=== PATIENT | female | born 1990 | race Caucasian/White ===

== ENCOUNTER → 2023-09-07 15:52 | Outpatient (REF) | payer OTHER, SELFPAY | LOC: PNTC 15:52 | PROVIDERS: ATTENDING PHYSICIAN Obstetrics & Gynecology | DX: Z87.59 Personal history of other complications of pregnancy, childbirth and the puerperium (principal) | CPT/HCPCS: 76816; 93976 ==

== ENCOUNTER → 2023-09-21 15:00 | Outpatient (REF) | payer OTHER, SELFPAY | LOC: PNTC 15:00 | PROVIDERS: ATTENDING PHYSICIAN Obstetrics & Gynecology | DX: Z36.82 Encounter for antenatal screening for nuchal translucency (principal) | CPT/HCPCS: 59025; 76816; 76820 ==

== ENCOUNTER → 2023-09-28 14:32 | Outpatient (REF) | payer OTHER, SELFPAY | LOC: PNTC 14:32 | PROVIDERS: ATTENDING PHYSICIAN Obstetrics & Gynecology | DX: O88.119 Amniotic fluid embolism in pregnancy, unspecified trimester (principal) | CPT/HCPCS: 59025; 76815; 76820 ==

== ENCOUNTER → 2023-10-05 15:06 | Outpatient (REF) | payer OTHER, SELFPAY | LOC: PNTC 15:06 | PROVIDERS: ATTENDING PHYSICIAN Obstetrics & Gynecology | DX: O36.5990 Maternal care for other known or suspected poor fetal growth, unspecified trimester, not applicable or unspecified (principal) | CPT/HCPCS: 59025; 76815; 76820 ==

== ENCOUNTER → 2023-10-12 10:54 | Outpatient (REF) | payer OTHER, SELFPAY | LOC: PNTC 10:54 | PROVIDERS: ATTENDING PHYSICIAN Obstetrics & Gynecology | DX: O36.5990 Maternal care for other known or suspected poor fetal growth, unspecified trimester, not applicable or unspecified (principal) | CPT/HCPCS: 59025; 76816; 76820 ==

== ENCOUNTER → 2023-10-19 14:32 | Outpatient (REF) | payer OTHER, SELFPAY | LOC: PNTC 14:32 | PROVIDERS: ATTENDING PHYSICIAN Obstetrics & Gynecology | DX: O36.5990 Maternal care for other known or suspected poor fetal growth, unspecified trimester, not applicable or unspecified (principal) | CPT/HCPCS: 59025; 76815; 76820 ==

== ENCOUNTER → 2023-10-26 14:09 | Outpatient (REF) | payer OTHER, SELFPAY | LOC: PNTC 14:09 | PROVIDERS: ATTENDING PHYSICIAN Obstetrics & Gynecology | DX: O36.5990 Maternal care for other known or suspected poor fetal growth, unspecified trimester, not applicable or unspecified (principal) | CPT/HCPCS: 59025; 76815; 76820 ==

== ENCOUNTER → 2023-11-02 10:55 | Outpatient (REF) | payer OTHER, SELFPAY | LOC: PNTC 10:55 | PROVIDERS: ATTENDING PHYSICIAN Obstetrics & Gynecology | DX: O36.5990 Maternal care for other known or suspected poor fetal growth, unspecified trimester, not applicable or unspecified (principal) | CPT/HCPCS: 36415; 59025; 76816; 76820; 86850; 86900; 86901 ==

== ENCOUNTER → 2023-11-09 11:22 | Outpatient (REF) | payer OTHER, SELFPAY | LOC: PNTC 11:22 | PROVIDERS: ATTENDING PHYSICIAN Obstetrics & Gynecology | DX: O36.5990 Maternal care for other known or suspected poor fetal growth, unspecified trimester, not applicable or unspecified (principal) | CPT/HCPCS: 59025; 76815; 76820 ==

== ENCOUNTER → 2023-11-16 16:09 | Outpatient (REF) | payer OTHER, SELFPAY | LOC: PNTC 16:09 | PROVIDERS: ATTENDING PHYSICIAN Obstetrics & Gynecology | DX: O43.219 Placenta accreta, unspecified trimester (principal) | CPT/HCPCS: 59025; 76815; 76820 ==

== ENCOUNTER 2023-11-20 07:15 | Inpatient (IN) | payer OTHER, SELFPAY ==
[2023-11-20 07:35] VITALS: BP 129/97; BMI 25.4
[2023-11-20 08:41] LABS: Hematocrit 35.3 % (37.0-47.0); Hemoglobin 12.6 g/dL (12.0-16.0); Mean Corp Hgb Conc. 35.7 g/dL (33.0-37.0); Mean Corpuscular Hgb 32.1 pg (27.0-31.0); Mean Corpuscular Volume 90.1 fL (81.0-99.0); Mean Platelet Volume 10.1 fL (7.4-10.4); Platelet Count 240 10^3/uL (130-400); Red Blood Cell Count 3.92 10^6/uL (4.20-5.40); Red Cell Dist. Width 12.6 % (11.5-14.5); White Blood Cell Count 7.8 10^3/uL (4.8-10.8)
[2023-11-20] MEDS: TYLENOL 1000 MG PO (09:00)
[2023-11-20] MEDS: ANCEF 10 IV (09:00)
[2023-11-20] MEDS: BICITRA 30 ML PO (09:00)
[2023-11-20] MEDS: LR 1000 IV (09:02)
[2023-11-20] MEDS: REGLAN 10 MG IV (15:56)
[2023-11-20] MEDS: TORADOL 15 MG IV ×2 (17:43→23:55)
[2023-11-21 04:42] LABS: Hematocrit 30.3 % (37.0-47.0); Hemoglobin 10.5 g/dL (12.0-16.0); Mean Corp Hgb Conc. 34.7 g/dL (33.0-37.0); Mean Corpuscular Hgb 32.4 pg (27.0-31.0); Mean Corpuscular Volume 93.5 fL (81.0-99.0); Platelet Count 192 10^3/uL (130-400); Red Blood Cell Count 3.24 10^6/uL (4.20-5.40); Red Cell Dist. Width 12.5 % (11.5-14.5); White Blood Cell Count 15.1 10^3/uL (4.8-10.8)
[2023-11-21] MEDS: TORADOL 15 MG IV ×2 (06:00→11:02)
--- NOTE | 2023-11-21 07:46 | W.PN.ANS.POP ---
Anesthesia Post Operative
- Anesthesia Post Op Note
Vital Signs Stable-See Nursing Note: Yes
Airway Patent: Yes
Adequate Pain Control: Yes
Change in Mental Status: No
Current Postoperative Nausea & Vomiting: No
Anesthesia Complications: No
General Anesthetic Recall: No
Unplanned Admission: No
Post Op Hydration Adequate: Yes
[2023-11-21] MEDS: FEOSOL 325 MG PO (09:01)
[2023-11-21] MEDS: SENOKOT-S 1 TABLET PO (09:01)
[2023-11-21] MEDS: PRENATAL PLUS 1 TABLET PO (09:02)
[2023-11-21 14:53] LABS: Syphilis/T. pallidum Ab Reflex Negative (Negative)
[2023-11-21] MEDS: MOTRIN 600 MG PO ×2 (16:52→23:06)
[2023-11-21] MEDS: TYLENOL 650 MG PO ×2 (16:52→23:07)
--- NOTE | 2023-11-22 04:46 | DOWNTIME ---
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 Downtime documentation of patient's care, including medication administrations, has been reconciled in the electronic record per guidelines. Refer to the
patient's paper chart under the miscellaneous tab to see printed paper medication records and downtime forms.
[2023-11-22] MEDS: TYLENOL 650 MG PO ×2 (05:18→15:39)
[2023-11-22] MEDS: MOTRIN 600 MG PO ×3 (05:18→23:54)
[2023-11-22] MEDS: PRENATAL PLUS 1 TABLET PO (09:08)
[2023-11-22] MEDS: FEOSOL 325 MG PO (09:08)
[2023-11-22] MEDS: SENOKOT-S 1 TABLET PO (09:09)
[2023-11-23] MEDS: TYLENOL 650 MG PO (06:10)
[2023-11-23] MEDS: MOTRIN 600 MG PO (07:45)
[2023-11-23] MEDS: PRENATAL PLUS 1 TABLET PO (07:45)
[2023-11-23] MEDS: FEOSOL 325 MG PO (07:45)
[2023-11-23] MEDS: SENOKOT-S 1 TABLET PO (07:56)
--- NOTE | 2023-11-23 08:52 | W.DS.TRANS ---
DC Summary - [employer]
-
Discharge Instructions:
Discharge Diagnosis/Procedures delivered by repeat csection
Diet Regular
Activity No strenuous activity
Driving Restrictions No driving for 2 weeks
Bathing Restrictions OK to Shower
Instructions:
Stand-Alone Forms: LDRP Delivery
Changes to Home Medications: No
Discharge Medications:
DC Medications w/original date entered in [facility]
vits 96-ferrous fumarate 27 mg iron-folic acid 800 mcg tablet 1 ea PO DAILY 06/16/21
acetaminophen 325 mg tablet 650 mg (2 x 325 mg) PO Q4HPRN PRN mild pain #0 tabs 11/22/23
ibuprofen 600 mg tablet 600 mg PO Q6HPRN PRN cramps #0 tabs 11/22/23
Home Medication Changes
Pending Results: No
Total time spent discharging patient (in min): 30
== END 2023-11-23 11:10 | disposition home or self-care (01) | DRG 788 ==
LOC: LDRP 07:15
PROVIDERS: ADMITTING PHYSICIAN Obstetrics & Gynecology; FAMILY PHYSICIAN Family Medicine
PROC: 10D00Z1 Extraction of Products of Conception, Low, Open Approach (ICD-10-PCS; 2023-11-20)
DX: O32.1XX0 Maternal care for breech presentation, not applicable or unspecified (principal); Z3A.39 39 weeks gestation of pregnancy; Z37.0 Single live birth
CPT/HCPCS: 85027; 86780; 86850; 86900; 86901